=== PATIENT | female | born 1960 | race Caucasian/White ===

== ENCOUNTER → 2018-10-14 | Outpatient (CLI) | payer BC | LOC: COL.LAB 10:46 | DX: Z01.812 Encounter for preprocedural laboratory examination (principal); M25.862 Other specified joint disorders, left knee ==

== ENCOUNTER 2021-02-03 08:17 | Inpatient (IN) | payer BC ==
[~2021-02-03] VITALS: Ht 157.5 cm; Wt 98.5 kg
[2021-02-22] VITALS (10 sets, daily range): BP systolic 94–134; BP diastolic 53–68; PULSE 57–68; TEMP 98.1–98.5
[2021-02-22] MEDS ORDERED: TIROSINT25 MC1 PO (09:58)
[2021-02-22] MEDS ORDERED: MOBIC15 MG PO (09:58)
[2021-02-22] MEDS ORDERED: ASPIRIN E.C. 8181 MG PO (09:58)
[2021-02-22] MEDS ORDERED: EPA FISH OIL1 SGL PO (10:00)
[2021-02-22] MEDS ORDERED: TENORMIN 2525 MG/TAB PO (10:05)
[2021-02-22] MEDS ORDERED: DUO-KAPS1 CAP PO (10:05)
[2021-02-22] MEDS ORDERED: PAXIL 20MG20 MG PO (10:06)
[2021-02-22] MEDS ORDERED: LIPITOR 10MG10 MG PO (10:06)
[2021-02-22] MEDS ORDERED: TYLENOL 500MG500 MG PO (10:07)
[2021-02-22] MEDS ORDERED: SYSTANE0.3% OP (10:08)
--- NOTE | 2021-02-22 10:10 | NUR ---
Order received to place scoplamine patch patient from Fab PASTRANA and placed onn patient behind left ear in PACU while getting prepped for surgery.
--- NOTE | 2021-02-22 19:20 | NUR ---
Patient has done well today. She was sleeping this afternoon, rested with her spouse at bedside. More awake this evening. Tolerating clear liquids. Denies nausea. Sitting up in chair, now. When she was up she did feel slightly lighthead, so we did not ambulate the halls. Pacheco to DD. Urine output marginal, but starting to increase yellow clear urine output. Ivf continue per orders & Vss. Robotic lap site x7, open to air edges well approximated. Report to nightshift nurse IGNACIO Weems
--- NOTE | 2021-02-22 22:00 | NUR ---
Pt. sitting up in bed at this time. Pt. is A&OX3, assessment complete. IV to lt. hand patent, IV fluids infusing per orders. Abd. incisions x7, well approximated. Pacheco catheter to DD, clear yellow urine noted. Pt. ambulated in jimenez with standby assist. Pt. reports pain at a 2 on pain scale. Pt. denies need for additional pain medication at this time.
[2021-02-23 01:09] VITALS: BP 113/58; PULSE 64; TEMP 97.8
[2021-02-23 04:39] VITALS: BP 122/68; PULSE 64; TEMP 98.6
[2021-02-23 07:00] LABS: HEMOGLOBIN 11.2 g/dl (12.5-16.0)
[2021-02-23 07:01] LABS: HEMATOCRIT 32.9 % (37.0-47.0)
[2021-02-23 07:03] LABS: CALCIUM 9.1 mg/dL (8.4-10.2); CREATININE, serum 0.97 (0.52-1.25); POTASSIUM 4.3 mmol/L (3.4-5.0)
[2021-02-23 07:23] VITALS: BP 112/59; PULSE 69; TEMP 98.4
--- NOTE | 2021-02-23 09:54 | NUR ---
Patient is resting in bed, alert and oriented x 4, vital signs stable, reports no pain, nausea or vomiting. The 7 lap sites are dry and edges well approximated. is in the room. Patient is tolerating diet. No further needs at the moment. Call light within reach.
--- NOTE | 2021-02-23 10:16 | NUR ---
Initial visit; Patient and her thanked [employer] for looking in on her and offering encouragement and God's blessings. Patient receptive to being kept in [employer]'s prayers.
--- NOTE | 2021-02-23 10:46 | NUR ---
AGREE WITH IDALMIS'S ASSESSMENTS CHARTED.
[2021-02-23 12:00] VITALS: BP 115/79; PULSE 68; TEMP 97.9
--- NOTE | 2021-02-23 12:07 | NUR ---
PT SHOWERED INDEPENDENTLY. CHANGED INTO STREET CLOTHES AND AMBULATING IN HALLS WITH INDEPENDENTLY. PT DENIES NEEDS AT THIS TIME.
--- NOTE | 2021-02-23 14:14 | NUR ---
DISCHARGE INSTRUCTIONS REVIEWED WITH PT AND . QUESTIONS SOLICITED AND ANSWERED. PT LEFT FLOOR PER WHEEL CHAIR AND STAFF.
== END 2021-02-23 14:00 | disposition home or self-care (01) | DRG 615 ==
LOC: SURG 02-22 07:30 → INPTSU 02-22 08:30 → SURG 02-22 10:30
PROVIDERS: ADMIT Urology
PROC: 8E0W4CZ Robotic Assisted Procedure of Trunk Region, Percutaneous Endoscopic Approach (ICD-10-PCS; 2021-02-22)
PROC: 0GT34ZZ Resection of Right Adrenal Gland, Percutaneous Endoscopic Approach (ICD-10-PCS; principal; 2021-02-22 10:30)
DX: E27.8 Other specified disorders of adrenal gland (principal); F41.9 Anxiety disorder, unspecified; F32.9 Major depressive disorder, single episode, unspecified; I10 Essential (primary) hypertension; E66.9 Obesity, unspecified; G47.30 Sleep apnea, unspecified; E78.5 Hyperlipidemia, unspecified; Z79.82 Long term (current) use of aspirin; Z88.0 Allergy status to penicillin; Z68.39 Body mass index [BMI] 39.0-39.9, adult
CPT/HCPCS: A4314; A9284; J0690; J1100; J1885; J2250; J2405; J2704; J2795; J3010; J7120